=== PATIENT | male | born 1990 | race Caucasian/White ===

== ENCOUNTER 2016-09-04 15:24 | Observation (INO) ==
[2016-09-04 15:45] LABS: Basophils # 0.1 K/mcL (0.0-0.2); Basophils % 0.6 %; Eosinophils # 0.2 K/mcL (0.0-0.6); Eosinophils % 3.1 %; Hematocrit 50.5 % (37.5-50.1); Hemoglobin 17.4 g/dL (12.9-16.9); Immature Granulocytes % 0.4 % (0-4); Lymphocytes # 2.4 K/mcL (0.6-4.6); Lymphocytes % 31.2 %; Mean Corpuscular HGB Conc 34.5 g/dL (31.6-35.5); Mean Corpuscular Hemoglobin 30.2 pg (28.0-33.3); Mean Corpuscular Volume 87.7 fL (83.0-100.0); Mean Platelet Volume 9.8 fL (9.4-12.4); Monocytes # 0.6 K/mcL (0.0-1.3); Monocytes % 7.7 %; Neutrophils # 4.4 K/mcL (1.6-8.9); Platelet Count 156 K/mcL (140-400); Red Blood Count 5.76 M/mcL (4.19-5.50)
--- NOTE | 2016-09-04 15:46 | Emergency Department Note ---
Disposition Clinical Impression: Elevated troponin, Dysfunction of right cardiac ventricle Chest pain Qualifiers: Chest pain type: unspecified Qualified Code(s): R07.9 - Chest pain, unspecified Disposition: Admitted As Inpatient Condition: Good Referrals: NO,PCP [Primary Care Provider] - Forms: ED Satisfaction Letter Chest Pain HPI - General Chief Complaint: ED Chest Pain Stated Complaint: dizzy, chest pain Time Seen by Provider: 09/04/16 15:45 Source: patient, EMS Mode of arrival: EMS Limitations: no limitations Vital Signs Reviewed: Yes Nursing Notes Reviewed: Yes - History of Present Illness HPI Narrative: 25-year-old male history of unknown valvular disorder who presents to the ER with chief complaint of chest pain. Patient reports symptom onset around 240 today while driving his vehicle. He reports a left-sided pressure with radiation into the right upper extremity. He also endorses nausea and vomiting at that time. He reports that roughly 10 years ago he had a cardiac workup at [facility] including a stress test as well as a bubble study and that they recommended a surgery for valve issues at that time that he never had. He denies any history of early cardiac in his family. No history of hypertension, diabetes or hyperlipidemia. Patient is also accompanied by the police here at this time. He has no other complaints. 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 Denies: diaphoresis, dyspnea Treatments prior to arrival chest pain: none - Related Data On Oral Contraceptives: No Previous Rx's Medication Instructions Recorded Albuterol Sulfate [Albuterol 2 puff IH Q4HR PRN #1 hfa.aer.ad 10/22/15 Inhaler] Azithromycin [Zithromax] 250 mg PO DAILY #6 tablet 10/22/15 predniSONE [Prednisone] 50 mg PO DAILY #5 tablet 10/22/15 Allergies Allergy/AdvReac Type Severity Reaction Status Date / Time No Known Allergies Allergy Verified 10/22/15 14:16 All systems ED: reviewed and negative except as stated. Constitutional: Denies: fever Cardiovascular: Reports: chest pain Respiratory: Denies: cough, dyspnea Gastrointestinal: Reports: nausea, vomiting Musculoskeletal: Denies: back pain, neck pain Chest Pain PMH - Past Medical History Medical history: Reports: valvular heart disease Psychiatric history: Reports: no psych history - Social History Smoking Status: Current every day smoker Alcohol use: Reports: none Drug use: Reports: none Physical Exam - General Limitations: no limitations General appearance: alert, in no apparent distress - Head Head exam: atraumatic, normocephalic, normal inspection - Eye Eye exam: Present: normal appearance, EOMI - ENT ENT exam: normal exam - Neck Neck exam: Present: normal inspection - Chest Chest inspection: Present: normal inspection, symmetric chest wall rise - Respiratory Respiratory exam: Present: normal lung sounds bilaterally - Cardiovascular Cardiovascular exam: Present: regular rate, normal rhythm, normal heart sounds, systolic murmur - Abdominal Exam Abdominal exam: Present: soft, Non-Tender. Absent: tenderness - Extremities Exam Extremities exam: Present: normal inspection, full ROM - Expanded Upper Extremity Exam Shoulder exam: Present: normal inspection, full ROM Arm exam: Present: normal inspection, full ROM Elbow exam: Present: normal inspection, full ROM Forearm/Wrist exam: Present: normal inspection, full ROM Hand exam: Present: normal inspection, full ROM - Expanded Lower Extremity Exam Hip/Pelvis exam: Present: normal inspection, full ROM Upper leg exam: Present: normal inspection, full ROM Knee exam: Present: normal inspection, full ROM Lower leg exam: Present: normal inspection, full ROM Ankle exam: Present: normal inspection, full ROM Foot/toe exam: Present: normal inspection, full ROM - Neurological Exam Neurological exam: Present: alert - Psychiatric Psychiatric exam: Present: normal affect, normal mood - Skin Skin exam: Present: warm, dry, intact, normal color Course Course Narrative: Patient seen and examined. Vital signs reviewed. We will do a cardiac workup including EKG, chest x-ray as well as troponin. Disposition pending. - Reevaluation(s) Reevaluation #1: Troponin came back at 0.53. Patient continues to have chest pain and will provided with aspirin and nitroglycerin. We are also currently waiting for urine drug screen but the patient adamantly denies any type of drug use. Reevaluation #2: I discussed the results of the CTA with the patient. He is in agreement with staying in the hospital. - Consultations Consultation #1: This case was discussed with the on-call jack prizer Dr. Gamboa. Discussed patient's history, EKG, lab findings and interventions to date. The CTA of his chest was currently pending. He recommends he will likely need to be admitted for serial troponins and an echo. Vital Signs Temperature 98.5 F 09/04/16 15:27 Pulse Rate 85 09/04/16 15:27 Respiratory Rate 16 09/04/16 15:27 Blood Pressure 130/84 09/04/16 15:27 O2 Sat by Pulse Oximetry 94 09/04/16 15:27 Temperature 98.5 F 09/04/16 15:27 Pulse Rate 79 09/04/16 17:45 Respiratory Rate 16 09/04/16 17:45 Blood Pressure 126/73 09/04/16 17:45 O2 Sat by Pulse Oximetry 95 09/04/16 17:45 Oxygen Delivery Oxygen Delivery Room Air Chest Pain - MDM Narrative Medical decision making narrative: 25-year-old male presents to the ER due to chest pain. Atraumatic in nature. Left-sided chest pain without radiation. EKG is nonischemic. His troponin did come back at 0.53 in the setting of normal renal function. D-dimer normal BNP normal chest x-ray with mild cardiomegaly. CTA negative for PE however reflux of contrast with right-sided dysfunction. Patient discussed with on-call jack prizer will be admitted to the hospitalist service for serial troponins and echo. - Lab Data Lab results reviewed: Yes I reviewed the patient's lab results. Result diagrams: 09/04/16 15:38 09/04/16 15:38 Lab Results 09/04/16 09/04/16 09/04/16 Range/Units 15:38 15:38 15:38 WBC 7.8 (4.3-11.1) K/mcL RBC 5.76 H (4.19-5.50) M/mcL Hgb 17.4 H (12.9-16.9) g/dL Hct 50.5 H (37.5-50.1) % MCV 87.7 (83.0-100.0) fL MCH 30.2 (28.0-33.3) pg MCHC 34.5 (31.6-35.5) g/dL RDW 13.0 (11.5-14.5) % Plt Count 156 (140-400) K/mcL MPV 9.8 (9.4-12.4) fL Immature Gran % 0.4 (0-4) % Seg Neutrophils % 57.0 % Lymphocytes % 31.2 % Monocytes % 7.7 % Eosinophils % 3.1 % Basophils % 0.6 % Neutrophils # 4.4 (1.6-8.9) K/mcL Lymphocytes # 2.4 (0.6-4.6) K/mcL Monocytes # 0.6 (0.0-1.3) K/mcL Eosinophils # 0.2 (0.0-0.6) K/mcL Basophils # 0.1 (0.0-0.2) K/mcL D-Dimer (0-500) ng/mLFEU Sodium 137 (136-145) mEq/L Potassium 3.5 (3.5-4.5) mEq/L Chloride 106 (98-109) mEq/L Carbon Dioxide 20 (19-29) mEq/L BUN 10 (8-26) mg/dL Creatinine 1.06 (0.72-1.25) mg/dL Est GFR ( Amer) > 60 (> 60) Est GFR (Non-Af Amer) > 60 (> 60) BUN/Creatinine Ratio 9 (6-26) Glucose 97 (70-99) mg/dL Calculated Osmolality 283 (280-300) Calcium 9.5 (8.6-10.8) mg/dL Troponin I 0.53 H* (0-0.03) ng/mL B-Natriuretic Peptide (0-100) pg/mL Urine Opiates Screen (Tlpmmd=434) ng/mL Ur Barbiturates Screen (Qdafow=629) ng/mL Ur Phencyclidine Scrn (Cutoff=25) ng/mL Ur Amphetamines Screen (Krmicz=6954) ng/mL U Benzodiazepines Scrn (Udwviv=101) ng/mL Urine Cocaine Screen (Cutoff= 300) ng/mL 09/04/16 09/04/16 09/04/16 Range/Units 15:38 15:38 16:15 WBC (4.3-11.1) K/mcL RBC (4.19-5.50) M/mcL Hgb (12.9-16.9) g/dL Hct (37.5-50.1) % MCV (83.0-100.0) fL MCH (28.0-33.3) pg MCHC (31.6-35.5) g/dL RDW (11.5-14.5) % Plt Count (140-400) K/mcL MPV (9.4-12.4) fL Immature Gran % (0-4) % Seg Neutrophils % % Lymphocytes % % Monocytes % % Eosinophils % % Basophils % % Neutrophils # (1.6-8.9) K/mcL Lymphocytes # (0.6-4.6) K/mcL Monocytes # (0.0-1.3) K/mcL Eosinophils # (0.0-0.6) K/mcL Basophils # (0.0-0.2) K/mcL D-Dimer 324 (0-500) ng/mLFEU Sodium (136-145) mEq/L Potassium (3.5-4.5) mEq/L Chloride (98-109) mEq/L Carbon Dioxide (19-29) mEq/L BUN (8-26) mg/dL Creatinine (0.72-1.25) mg/dL Est GFR ( Amer) (> 60) Est GFR (Non-Af Amer) (> 60) BUN/Creatinine Ratio (6-26) Glucose (70-99) mg/dL Calculated Osmolality (280-300) Calcium (8.6-10.8) mg/dL Troponin I (0-0.03) ng/mL B-Natriuretic Peptide 24 (0-100) pg/mL Urine Opiates Screen Negative (Cwptty=076) ng/mL Ur Barbiturates Screen Negative (Yvbnmt=181) ng/mL Ur Phencyclidine Scrn Negative (Cutoff=25) ng/mL Ur Amphetamines Screen Negative (Hspdon=8914) ng/mL U Benzodiazepines Scrn Negative (Yqbzfl=333) ng/mL Urine Cocaine Screen Negative (Cutoff= 300) ng/mL - Radiology Data Radiology results reviewed: Yes I reviewed the patient's radiology results. Chest X-Ray 09/04/16 15:30 IMPRESSION: 1. Ill-defined bilateral perihilar infrahilar opacity may reflect acute bronchitis/bronchiolitis versus mild edema. 2. Mild cardiomegaly. D/ / Adebayo Lizama MD / Adebayo Liazma MD Interpreting Provider: Adebayo Lizama MD Chest CTA 09/04/16 16:39 IMPRESSION: No PE identified. Evidence of right heart dysfunction with reflux of contrast into the IVC and hepatic veins. Recommend echocardiogram for further evaluation. Bibasilar infiltrates and/or atelectasis. D/ / Shar Rojas MD / Shar Rojas MD Interpreting Provider: Shar Rojas MD - EKG Data EKG attestation: Yes I reviewed and interpreted this EKG. EKG results narrative: EKG demonstrates sinus rhythm with rate of 69 bpm. Normal axis. Normal intervals. Nonspecific ST-T wave changes in lead 3. No ST elevations or depressions. No acute ischemic findings. Heart Score - Score History: Slightly Suspicious EKG: Normal Age: Less than 45 Risk Factors: No risk factors known Troponin: Greater than 3x normal limit HEART Score Total: 2 Critical Care Time Critical Care Time: Yes Total Critical Care Time: 35 Attestation: Critical care time 35 minutes. Amelie.Clifford - Wilfrido Situation: Demographics, MOA Background: Presenting Complaint, Relevant PMH, Meds, & Allergies Assessment: Vital Signs, Course and respsone to treatment, Exam Concerns, Patient/Family Expectation, Pertinant Lab Results, Outstanding Labs Recommendation: Barrier(s) to disposition, Recommendation based on pending studies, treatments, or consults S.BSravanthi Report Given to: Hospitalist Wilfrido Repor Time: 18:12 Attestation Statement - Attestation Attestation: Patient was seen with resident physician. I reviewed the history, physical, assessment and plan, and agree with the findings. I also personally evaluated this patient and had [id number] time with this patient. 25-year-old male presents to the emergency Department chief complaint chest pain. He is driving his car when he developed onset of left-sided chest pressure or squeezing sensation radiating to the left arm. It was associated with dizziness and a feeling of his arms being heavy. He denies loss of consciousness no fevers or chills. He has a cardiac valvular disorder of unknown type. He says he had a workup approximately 10 years ago. He denies fevers or chills at this time. No nausea vomiting or diarrhea. On exam vital signs patient's hypoxic 92% on 3 L. Other vital signs were unremarkable. ENT normal. Heart regular rhythm and rate with systolic murmur. Lungs clear. Abdomen soft nontender. X-ray is unremarkable. Neurologically intact no focal deficits. Course, EKG showed no acute ischemic changes. However the troponin on the patient was positive. We did discuss with cardiology. They suggested drug screen which and oriented been ordered. Chest x-ray revealed pulmonary congestion, this was confirmed by CT scan which demonstrated reflux of contrast material and pulmonary congestion. Patient clearly has cardiac dysfunction which will require additional workup and treatment. We will admit to the hospital service for further evaluation and treatment. Patient was hemodynamically stable through his stay in the emergency department. Critical care time 35 minutes managing chest pain and elevated troponin. Hospitalist will be notified as to the need for admission. Agree with resident physician assessment and plan.
[2016-09-04 15:59] LABS: BUN/Creatinine Ratio 9 (6-26); Blood Urea Nitrogen 10 mg/dL (8-26); Calcium 9.5 mg/dL (8.6-10.8); Carbon Dioxide 20 mEq/L (19-29); Chloride 106 mEq/L (98-109); Glucose 97 mg/dL (70-99); Osmolality,Calculated 283 (280-300); Potassium 3.5 mEq/L (3.5-4.5); Sodium 137 mEq/L (136-145); eGFR For African Americans > 60 (> 60); eGFR For Non-African Americans > 60 (> 60)
[2016-09-04] MEDS ORDERED: Aspirin 81 MG TAB.CHEW PO STA (16:20)
[2016-09-04] MEDS ORDERED: Nitroglycerin 0.4 MG TAB.SUBL SL PRN (16:20)
[2016-09-04 16:41] LABS: Amphetamine Screen,Urine Negative ng/mL (Cutoff=1000); Barbiturate Screen,Urine Negative ng/mL (Cutoff=200); Benzodiazepines Screen,Urine Negative ng/mL (Cutoff=200); Cocaine Screen,Urine Negative ng/mL (Cutoff= 300); Opiate Screen,Urine Negative ng/mL (Cutoff=300); Phencyclidine Screen,Urine Negative ng/mL (Cutoff=25)
[2016-09-04 18:30] LABS: Cannabinoid Screen,Urine Negative ng/mL (Cutoff = 50)
[2016-09-04] MEDS ORDERED: Furosemide 20 MG/2 ML VIAL IVP ONE (22:42)
[2016-09-04] MEDS ORDERED: Azithromycin 500 MG in D5% in Water 250 ML IVPB SCH (23:00)
[2016-09-04] MEDS ORDERED: *HR* Enoxaparin 40 MG/0.4 ML SYRINGE SQ ONE (23:03)
--- NOTE | 2016-09-04 23:06 | Internal Med History&Physical ---
Date of Encounter: 09/04/16 Time of Encounter: 23:18 Assessment and Plan (1) Hypoxia Current visit: Yes Status: Acute Suspected this is due to pulmonary congestion. X-ray is suggestive of cardiomegaly and redistribution. I would give the patient Lasix intravenously. Echocardiogram will be checked. He is currently requiring 3 L of nasal oxygen. (2) Elevated troponin Current visit: Yes Status: Acute Patient has cardiac pathology but does not recall the diagnosis. Suspect that this is NSTEMI type 2 due to demand ischemia. however type one cannot be completely excluded. I will give the patient a dose of Lovenox. Echocardiogram. Cardiology consultation. Request outside records from [facility]. Internal Medicine - H&P: HPI Chief complaint: CHEST PAIN History of present illness: Mr. López is a 25 year old male smoker presents to the emergency room today after an episode of chest tightness. Patient was driving his car started experiencing a multitude of complains including retrosternal chest tightness sweating lightheadedness shortness of breath heaviness in both arms. Patient thought that he was confused during that period. I try to call 911 but it took him many attempts to do that after he had pulled off on the side of the road. This event lasted for approximately 30 minutes. He denies any chest pain during my interview. Patient was found at our facility to be hypoxic saturating late 80s early 90s. As required 2 to 3 L of nasal oxygen. He mentioned that he has some cough, but denies any fevers chills. He denies also any increase in sputum production. He notices shortness of breath with exertion approximately 2 blocks. Patient had these episodes before. He mentioned that while in the [employer] he passed out and was investigated for that at [facility]. He had workup done over there and was advised to see surgeon for correction of cardiac pathology and was supposed to meet with 3 surgeons to make a decision on that. However patient got scared and did not follow up. Past Med Surg Social Fam HX - Past Medical History Medical history: valvular heart disease Psychiatric history: no psych history - Social History Smoking Status: Current every day smoker Smokeless Tobacco Status: No Alcohol use: none Drug use: none Internal Medicine - H&P: Meds No Known Home Drugs 09/04/16 [History] Allergies No Known Allergies Allergy (Verified 10/22/15 14:16) All Systems PM: A 10-system review of systems was performed and is negative for pertinent findings except as documented above in the HPI. Review of systems: 10 point review of systems is negative except for HPI - Constitutional Vitals: Temp Pulse Resp BP Pulse Ox 97.9 F 64 14 121/69 94 09/04/16 19:39 09/04/16 19:39 09/04/16 19:51 09/04/16 19:51 09/04/16 20:17 Exam: Gen.: patient is alert oriented times 3 not in distress cardiac: normal S1 S2 S3 ? systolic murmur over A1 chest: clear to auscultation abdomen: soft nontender nondistended lower extremity lax calf muscles no swelling Neuro: no focal deficits Internal Med - H&P Results - Labs CBC & Chem 7: 09/04/16 15:38 09/04/16 15:38
[2016-09-05] MEDS ORDERED: *HR* Enoxaparin 100 MG/ML SYRINGE SQ ONE (03:00)
--- NOTE | 2016-09-05 08:45 | Internal Med Progress Note ---
Date of Encounter: 09/05/16 Time of Encounter: 08:45 - Constitutional Vitals: Temp Pulse Resp BP Pulse Ox 97.6 F 66 17 114/78 92 09/05/16 06:58 09/05/16 06:58 09/05/16 06:58 09/05/16 06:58 09/05/16 05:00 Internal Medicine: Result - Labs CBC & Chem 7: 09/04/16 15:38 09/04/16 15:38 Labs: Cardiac Enzymes 09/04/16 Range/Units 22:44 Troponin I 0.47 H* (0-0.03) ng/mL - ABG Interpretation ABG results: PT/INR, D-dimer D-Dimer 324 ng/mLFEU (0-500) 09/04/16 15:38 Consult Discharge Plan - Plan Referrals: NO,PCP [Primary Care Provider] -
[2016-09-05] MEDS: Aspirin 325 MG TABLET PO SCH (09:14)
[2016-09-05] MEDS: Nicotine 14 MG PATCH.TD24 TD SCH (09:14)
[2016-09-05 09:55] LABS: Basophils # 0.1 K/mcL (0.0-0.2); Basophils % 0.8 %; Eosinophils # 0.3 K/mcL (0.0-0.6); Eosinophils % 3.5 %; Hematocrit 51.8 % (37.5-50.1); Hemoglobin 17.3 g/dL (12.9-16.9); Immature Granulocytes % 0.4 % (0-4); Lymphocytes # 2.6 K/mcL (0.6-4.6); Lymphocytes % 30.5 %; Mean Corpuscular HGB Conc 33.4 g/dL (31.6-35.5); Mean Corpuscular Hemoglobin 30.4 pg (28.0-33.3); Mean Corpuscular Volume 90.9 fL (83.0-100.0); Monocytes # 0.7 K/mcL (0.0-1.3); Monocytes % 8.5 %; Neutrophils # 4.8 K/mcL (1.6-8.9); Platelet Count 154 K/mcL (140-400); Red Cell Distribution Width 13.2 % (11.5-14.5); Segmented Neutrophils % 56.3 %
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
[2016-09-05 10:09] LABS: BUN/Creatinine Ratio 11 (6-26); Blood Urea Nitrogen 12 mg/dL (8-26); Calcium 9.7 mg/dL (8.6-10.8); Carbon Dioxide 26 mEq/L (19-29); Chloride 106 mEq/L (98-109); Glucose 88 mg/dL (70-99); Magnesium 1.9 mg/dL (1.6-2.6); Osmolality,Calculated 287 (280-300); Sodium 139 mEq/L (136-145); eGFR For African Americans > 60 (> 60); eGFR For Non-African Americans > 60 (> 60)
[2016-09-05 10:12] LABS: Potassium 4.9 mEq/L (3.5-4.5)
--- NOTE | 2016-09-05 14:39 | Discharge Summary ---
<Bruno Rivera - Last Filed: 09/05/16 14:56> Date of Encounter: 09/05/16 Time of Encounter: 14:37 - Discharge Diagnosis (1) Atrial septal defect, secundum Status: Acute (2) Elevated troponin Status: Acute - Discharge Medications Home Medications: No Known Home Drugs 09/04/16 [History] Allergies/Adverse Reactions: Allergies No Known Allergies Allergy (Verified 10/22/15 14:16) Procedures/tests Complete & Pending: Procedures Performed prior 72 hours Category Date Time Status EV echocardiogram Routine Y 09/05/16 22:35 Completed Date of admission: 09/04/16 18:26 Primary care physician: PCP NO Consults: Cardiology service Discharging clinician: Bruno Rivera Anticipated date of discharge: 09/05/16 - Patient Status Disposition: Admitted As Inpatient Condition: Good Functional capacity at discharge: independent ambulation Overall status at discharge: patient is not back to baseline - Discharge Instructions Follow Up With: Aries Monroy DO [Resident] - 10/17/16 1:30 pm (patient will receive a new patient packet in the mail to fill out and bring with him to first appt. There will be a 1st visit charge of $125 and the rest will be billed . For hospital discharge follow-up.) - Diet and Activity Diet: low fat, low cholesterol (Cardiac diet) Hospital course: Mr. López is a 25 year old male with a history of atrial septal defect who presented to the ER with chief complaint of sudden onset chest pain and lightheadedness while he was driving, CTA of the chest in the ER showed no evidence of pulmonary embolism, however there was evidence of right heart dysfunction with reflux of contrast into the inferior vena cava and hepatic veins, as well as elevated troponin, patient was admitted to the hospital and cardiology service was consulted. Patient states that he was diagnosed with atrial septal defect 4 years ago at [facility], during that time he did not follow-up for further assessment, echo from [facility] showed; cardiac MRI: severely enlarged RV with low normal systolic dysfunction and large secundum ASD with left to right shunt. Echo during this hospital stay showed severely dilated right ventricle, severely bi-atrial enlargement, ASD noted, likely secundum, with evidence of bidirectional shunt and mild pulmonary hypertension. Cardiology service recommended the patient to get transferred to [facility] for possible closure, Dr. Gamboa will contact [facility] for possible transfer tonight. - Time Spent with Patient Total time spent providing and/or coordinating discharge services: - Constitutional Vitals: Temp Pulse Resp BP Pulse Ox 98.4 F 61 16 124/79 92 09/05/16 11:27 09/05/16 11:27 09/05/16 11:27 09/05/16 11:27 09/05/16 11:27 General appearance: Present: cooperative, A&O X 3, pleasant, no acute distress, answers questions appropriately - Head Head exam: Present: atraumatic, normocephalic - Eye Eye exam: Present: PERRL, conjuntiva pink, sclera anicteric Pupils: Present: PERRL - Neck Neck exam general surgery: Present: supple, trachea midline. Absent: lymphadenopathy - Respiratory Respiratory exam: Present: CTAB. Absent: accessory muscle use, rales, rhonchi, wheezes - Cardiovascular Cardiovascular exam: Present: RRR, +S1, +S2, systolic murmur. Absent: diastolic murmur, gallop, rubs - GI/Abdominal GI/Abdominal exam: Present: normal bowel sounds, soft, no peritoneal signs. Absent: distended, tenderness - Extremities Exam Extremities exam: Present: warm, radial pulses palpable and symetrical. Absent : calf tenderness, cyanotic, pedal edema - Neurological Exam Neurological exam: Present: CN II-XII intact, oriented X3, no focal deficits. Absent: pronater drift, facial droop, speech deficit - Skin Skin exam: Present: dry, intact <Molly Granger - Last Filed: 09/05/16 15:34> Date of Encounter: 09/05/16 Procedures/tests Complete & Pending: Procedures Performed prior 72 hours Category Date Time Status EV echocardiogram Routine Y 09/05/16 22:35 Completed Date of admission: 09/04/16 18:26 Primary care physician: PCP NO Hospital course: Mr. López is a 25 year old male - Time Spent with Patient Total time spent providing and/or coordinating discharge services: - Constitutional Vitals: Temp Pulse Resp BP Pulse Ox 98.4 F 61 16 124/79 92 09/05/16 11:27 09/05/16 11:27 09/05/16 11:27 09/05/16 11:27 09/05/16 11:27 - Attending Attestation I saw and examined pt. I have discussed with Resident Dr Rivera regarding pt's management plan. I agree with the documentation. Pt's previous chart from [facility] shows ASD. Cardio recommend to transfer to [facility] for further management. Pt is pain free now. Stable to transfer as [facility] accept him.
[2016-09-05] MEDS ORDERED: Nitroglycerin 0.4 MG TAB.SUBL SL PRN (23:40)
[2016-09-06] MEDS ORDERED: Ketorolac 15 MG/ML VIAL IVP ONE (00:01)
[2016-09-06] MEDS: Aspirin 325 MG TABLET PO SCH (08:48)
[2016-09-06] MEDS: Nicotine 14 MG PATCH.TD24 TD SCH (08:48)
--- NOTE | 2016-09-06 09:21 | Event Note ---
<Bruno Rivera - Last Filed: 09/06/16 09:19> Date of Encounter: 09/06/16 Time of Encounter: 09:19 Patient seen and examined this morning. No active chest pain or shortness of breath this morning, patient has no complaints morning. [facility] has accepted the patient but still waiting for the bed to be available. Pending transfer. <Molly Granger - Last Filed: 09/06/16 16:00> Date of Encounter: 09/06/16 I saw and examined pt. I have discussed with Resident Dr Rivera regarding pt's management plan. I agree with the documentation. Pt is stable, waiting for transfer to [facility].
--- NOTE | 2016-09-06 12:29 | Electrocardiograph Report ---
[address] [address] Test Date: 2016-09-04 Pat Name: Rob López Department: 102 Room: [facility] Gender: M Package Pick Up: Mirela : 1990 Requested By: Schuyler Garza Order Number: [id number] Reading MD: Duke Gamboa Measurements Intervals [place] Rate: 69 P: 56 IA: 180 QRS: 109 QRSD: 130 T: 18 QT: 395 QTc: 415 Interpretive Statements SINUS RHYTHM RBBB Electronically Signed On 09-06-2016 12:28:10 EDT by Duke Gamboa
[2016-09-06 15:48] VITALS: BP 127/70
[2016-09-07 20:30] LABS: CK-BB (CK isoenzymes) 0 % (0-0); CK-MB (CK isoenzymes) 0 % (0-4); CK-MM (CK-isoenzymes) 100 % (96-100)
[2016-09-07 20:30] LABS: CK-BB (CK isoenzymes) 0 % (0-0); CK-MB (CK isoenzymes) 0 % (0-4); CK-MM (CK-isoenzymes) 100 % (96-100)
[2016-09-08 09:18] LABS: CK Total (Ck Isoenzymes) 112 U/L (20-200)
[2016-09-08 09:21] LABS: CK Total (Ck Isoenzymes) 103 U/L (20-200)
--- NOTE | 2016-09-08 15:06 | Electrocardiograph Report ---
[address] [place] [address] Test Date: 2016-09-05 Pat Name: Rob López Department: 111 Room: 2NE28 Gender: M Medical Office Rep: [facility] : 1990 Requested By: Molly Granger Order Number: [id number] Reading MD: Delfino Joy MD Measurements Intervals [place] Rate: 65 P: 57 [place]: 202 QRS: 112 QRSD: 134 T: 3 QT: 394 QTc: 405 Interpretive Statements SINUS RHYTHM with first degree av block INTRAVENTRICULAR CONDUCTION DELAY POSSIBLE INFERIOR MYOCARDIAL INFARCTION, PROBABLY OLD WITH POSTERIOR EXTENSION Electronically Signed On 09-08-2016 15:04:44 EDT by Delfino Joy MD
== END 2016-09-06 16:32 | disposition other institution (70) ==
LOC: 2NENU 15:24 → EMEROO 15:24 → 2NENU 19:53
PROVIDERS: ADMIT Hospitalist; ATTEND Internal Medicine